=== PATIENT | female | born 1970 | race Two or more races ===

== ENCOUNTER 2017-12-15 06:47 | Day surgery (SDC) | payer OTHER ==
[~2017-12-15] VITALS: Ht 157.5 cm; Wt 74.4 kg
[2017-12-15 07:48] VITALS: BP 116/67
[2017-12-15 09:10] VITALS: BP 110/74
== END 2017-12-15 10:05 | disposition home or self-care (01) ==
LOC: DS 06:47 → OR 08:30 → GI 08:30 → DS 10:05
PROVIDERS: Internal Medicine Gastroenterology
PROC: 0DJD8ZZ Inspection of Lower Intestinal Tract, Via Natural or Artificial Opening Endoscopic (ICD-10-PCS; principal; 2017-12-15 08:30)
DX: K64.8 Other hemorrhoids (principal); K92.1 Melena; Z80.0 Family history of malignant neoplasm of digestive organs; Z68.29 Body mass index [BMI] 29.0-29.9, adult
CPT/HCPCS: 45378; J1200; J1610; J2250; J2310; J3010; J3490